=== PATIENT | male | born 1965 | race Caucasian/White ===

== ENCOUNTER → 2021-10-21 | Outpatient (CLI) | payer OTHER ==
--- NOTE | 2021-10-21 16:21 | RAD ---
EXAM: 3 Views Right Shoulder DATE: 10/21/2021 2:20 PM INDICATION: Reason: RIGHT SHOULDER PAIN / Spl. Instructions: / History: COMPARISON: No Prior FINDINGS: There is no evidence for acute fracture or dislocation. AC joint is congruent. Humeral head is not hi gh riding. IMPRESSION: 1. No acute fracture or dislocation. Electronically signed by: Richard Mancera MD (10/21/2021 4:19 PM) FARZANA
== END ==
LOC: RAD 13:58
PROVIDERS: ATTEND Nurse Practitioner Primary Care
DX: M25.511 Pain in right shoulder (principal)
CPT/HCPCS: 73030